=== PATIENT | female | born 1965 | race Caucasian/White ===

== ENCOUNTER 2017-02-05 07:26 | Emergency (ER) | payer MEDICAID ==
[~2017-02-05] VITALS: Ht 170.2 cm; Wt 63.5 kg
[2017-02-05 07:31] VITALS: BP 113/67
[2017-02-05 08:30] VITALS: BP 113/66
== END 2017-02-05 08:45 | disposition home or self-care (01) ==
LOC: MED 07:26
DX: S50.02XA Contusion of left elbow, initial encounter (principal); W22.8XXA Striking against or struck by other objects, initial encounter; Y93.89 Activity, other specified; Y92.89 Other specified places as the place of occurrence of the external cause; Y99.8 Other external cause status
CPT/HCPCS: 73080; 99284; Q0092

== ENCOUNTER 2017-04-09 17:14 | Emergency (ER) | payer MEDICAID ==
[~2017-04-09] VITALS: Ht 170.2 cm; Wt 67.7 kg
[2017-04-09 17:44] VITALS: BP 114/73
--- NOTE | 2017-04-09 18:21 | NUR ---
PATIENT TO BED 11
--- NOTE | 2017-04-09 18:23 | NUR ---
51/F C/O LEFT KNEE PAIN 01/23 WITH SWELLING, INJURED IT A WEEK AGO.AAOX4 WITH EVEN AND STEADY GAIT; LUNGS CLEAR BL; HR EVEN AND REGULAR; PATIENT STATES PAIN OF 8/10 AT THIS TIME; VSS; PATIENT POSITIONED FOR COMFORT; HOB ELEVATED; BEDRAILS UP X2; BED DOWN. ER MD MADE AWARE OF PT STATUS.
[2017-04-09] MEDS ORDERED: KETOROLAC 60 MG/2 ML VIAL IM ONE (18:45)
[2017-04-09 19:06] VITALS: BP 117/81
--- NOTE | 2017-04-09 19:07 | NUR ---
Patient discharged with v/s stable. Written and verbal after care instructions given and explained. Patient alert, oriented and verbalized understanding of instructions. Ambulatory with steady gait. All questions addressed prior to discharge. ID band removed. Patient advised to follow up with PMD. Rx of NORCO & MOTRIN given. Patient educated on indication of medication including possible reaction and side effects. Opportunity to ask questions provided and answered.
== END 2017-04-09 19:07 | disposition home or self-care (01) ==
LOC: MED 17:14
DX: M25.562 Pain in left knee (principal); F17.210 Nicotine dependence, cigarettes, uncomplicated; Z90.49 Acquired absence of other specified parts of digestive tract
CPT/HCPCS: 73562; 81025; 96372; 99284; J1885

== ENCOUNTER 2017-08-23 18:26 | Emergency (ER) | payer MEDICAID ==
[~2017-08-23] VITALS: Ht 170.2 cm; Wt 70.8 kg
[~2017-08-23 18:26] MED LIST: AMOX-999 PO; IBUP-1842 PO; PANT40EC PO
[2017-08-23 18:30] VITALS: BP 161/96
--- NOTE | 2017-08-23 18:34 | NUR ---
Patient ambulated to chair D. RN evaluating patient at bedside.
--- NOTE | 2017-08-23 18:39 | NUR ---
tooth pain to left lower side; pt seen here two days ago for same; went to dentist today and states they were unable to pull her tooth d/t not being able to numb her properly . DENIES N/V/D; SKIN IS PINK/WARM/DRY; AAOX4 WITH EVEN AND STEADY GAIT; LUNGS CLEAR BL; HR EVEN AND REGULAR; PT DENIES ANY FEVER, CP, SOB, OR COUGH AT THIS TIME; PATIENT STATES PAIN OF 10/10 AT THIS TIME; VSS; ER MD MADE AWARE OF PT STATUS.
--- NOTE | 2017-08-23 19:00 | NUR ---
RECEIVED REPORT FROM SWATI RALPH. TRANSFER OF CARE AT THIS TIME.
--- NOTE | 2017-08-23 20:13 | NUR ---
Dr. Peterson evaluating patient at bedside.
[2017-08-23 20:26] VITALS: BP 151/82
--- NOTE | 2017-08-23 20:26 | NUR ---
Patient discharged with v/s stable. Written and verbal after care instructions given and explained. Patient alert, oriented and verbalized understanding of instructions. Ambulatory with steady gait. All questions addressed prior to discharge. ID band removed. Patient advised to follow up with PMD. Rx of IBUPROFEN 600MG, AUGMENTIN 875MG AND NORCO 5MG-325MG given. Patient educated on indication of medication including possible reaction and side effects. Opportunity to ask questions provided and answered.
== END 2017-08-23 20:26 | disposition home or self-care (01) ==
LOC: MED 18:26
DX: K04.7 Periapical abscess without sinus (principal)
CPT/HCPCS: 99283

== ENCOUNTER 2017-11-23 04:26 | Emergency (ER) | payer MEDICAID ==
[~2017-11-23] VITALS: Ht 170.2 cm; Wt 72.6 kg
[2017-11-23 04:43] VITALS: BP 138/67
--- NOTE | 2017-11-23 04:45 | NUR ---
TO BED # 4 AMBULATORY,CAME IN FOR STAPLE REMOVAL ON HER LEFT SIDE HEAD.
--- NOTE | 2017-11-23 04:55 | NUR ---
ROBYN WAS REMOVED BY ERMD WITH ASEPTIC TECHNIQUE. WOUND CLEAN AND INTACT.
[2017-11-23 05:02] VITALS: BP 138/67
--- NOTE | 2017-11-23 05:02 | NUR ---
Patient discharged with v/s stable. Written and verbal after care instructions given and explained. Patient verbalized understanding. Ambulatory with steady gait. All questions addressed prior to discharge. Advised to follow up with PMD.
== END 2017-11-23 05:02 | disposition home or self-care (01) ==
LOC: MED 04:26
DX: S01.01XD Laceration without foreign body of scalp, subsequent encounter (principal); K21.9 Gastro-esophageal reflux disease without esophagitis; Z79.899 Other long term (current) drug therapy; Z90.49 Acquired absence of other specified parts of digestive tract; X58.XXXD Exposure to other specified factors, subsequent encounter
CPT/HCPCS: 99281

== ENCOUNTER 2017-11-30 19:55 | Emergency (ER) | payer MEDICAID ==
[~2017-11-30] VITALS: Ht 170.2 cm; Wt 68.0 kg
[2017-11-30 20:05] VITALS: BP 120/78
--- NOTE | 2017-11-30 20:06 | NUR ---
TO BED # 2 AMBULATORY , REPORT GIVEN TO ASHLEY RALPH.
--- NOTE | 2017-11-30 20:08 | NUR ---
PATIENT PRESENTS TO ED WITH RIGHT EAR PAIN . PT STATES PAIN FOR 3 DAYS WITH OUT DISCAHARGE . DENIES N/V/D; SKIN IS PINK/WARM/DRY; AAOX4 WITH EVEN AND STEADY GAIT; LUNGS CLEAR BL; HR EVEN AND REGULAR; PT DENIES ANY FEVER, CP, SOB, OR COUGH AT THIS TIME; PATIENT STATES PAIN OF 10/10 AT THIS TIME; VSS; PATIENT POSITIONED FOR COMFORT; HOB ELEVATED; BEDRAILS UP X2; BED DOWN. ER MD MADE AWARE OF PT STATUS.
[2017-11-30 20:35] VITALS: BP 108/69
--- NOTE | 2017-11-30 20:35 | NUR ---
Patient discharged with v/s stable. Written and verbal after care instructions given and explained. Patient alert, oriented and verbalized understanding of instructions. Ambulatory with steady gait. All questions addressed prior to discharge. ID band removed. Patient advised to follow up with PMD. Rx of Tylenol #3, Naproxen, and Ciprodex gtts given. Patient educated on indication of medication including possible reaction and side effects. Opportunity to ask questions provided and answered.
== END 2017-11-30 20:35 | disposition home or self-care (01) ==
LOC: MED 19:55
DX: H60.8X1 Other otitis externa, right ear (principal); K21.9 Gastro-esophageal reflux disease without esophagitis; F17.210 Nicotine dependence, cigarettes, uncomplicated; Z79.899 Other long term (current) drug therapy
CPT/HCPCS: 99283

== ENCOUNTER 2019-08-29 20:26 | Emergency (ER) | payer SELFPAY ==
[~2019-08-29] VITALS: Ht 170.2 cm; Wt 76.7 kg
[2019-08-29 20:29] VITALS: BP 123/71
--- NOTE | 2019-08-29 20:34 | NUR ---
PATIENT TAKEN TO BED 11, FLU SWAB OBTAINED
--- NOTE | 2019-08-29 20:38 | NUR ---
54 YO FEMALE CO SORE THROAT FOR 3D. PT STATES THAT THE PAIN IS GONE NOW BUT HER BOSS NEEDS HER TO BE CLEARED TO RETURN TO WORK. NO DIFFUCULTY SWALLOWING, NO DROOLING OBSERVED. PT HAS NO MED HX AND NO RX.
--- NOTE | 2019-08-29 21:21 | NUR ---
PATIENT ELOPED FROM FACILITY. DISCHARGE INSTRUCTIONS NOT GIVEN TO PATIENT. DR. MOSLEY NOTIFIED.
[2019-08-29 21:22] VITALS: BP 123/71
== END 2019-08-29 21:21 | disposition left against medical advice (07) ==
LOC: MED 20:26
DX: R06.02 Shortness of breath (principal); Z53.21 Procedure and treatment not carried out due to patient leaving prior to being seen by health care provider

== ENCOUNTER 2020-09-14 08:42 | Emergency (ER) | payer SELFPAY ==
[~2020-09-14] VITALS: Ht 170.2 cm; Wt 70.3 kg
[2020-09-14 08:45] VITALS: BP 183/72
--- NOTE | 2020-09-14 08:52 | NUR ---
PT AMBULATED TO BED 12.
--- NOTE | 2020-09-14 08:59 | NUR ---
55 Y/O FEMALE C/O RIGHT RIB PAIN S/P SLIGHT INJURY, PATIENT STATES SHE WAS TRYING TO PULL A CHAIR OFF OF A FORKLIFT AND ENDED UP PULLING CHAIR INTO ABDOMEN, INJURYING HER RIGHT RIB AREA. PATIENT STATES SHE HEARD A CRACK DURING ACCIDENT. PATIENT STATING IT NOW HURTS TO BREATHE, DENIES ANY LOC. DENIES ANY N/V. NO PROBLEMS WITH ELIMINATION. ALLERGIES:CODEINE
[2020-09-14] MEDS ORDERED: KETOROLAC 15 MG/ML VIAL ONE (09:06)
[2020-09-14] MEDS ORDERED: KETOROLAC 15 MG/ML VIAL IM SCH (09:30)
[2020-09-14] MEDS ORDERED: METH750T5 PO (10:02)
[2020-09-14] MEDS ORDERED: IBUP-2213 PO (10:02)
[2020-09-14 10:10] VITALS: BP 183/72
--- NOTE | 2020-09-14 10:10 | NUR ---
Patient discharged with v/s stable. Written and verbal after care instructions given and explained. Patient alert, oriented and verbalized understanding of instructions. Ambulatory with steady gait. All questions addressed prior to discharge. ID band removed. Patient advised to follow up with PMD. Rx of robaxin, ibuprofen given. Patient educated on indication of medication including possible reaction and side effects. Opportunity to ask questions provided and answered.
== END 2020-09-14 10:10 | disposition home or self-care (01) ==
LOC: MED 08:42
DX: R07.81 Pleurodynia (principal); K21.9 Gastro-esophageal reflux disease without esophagitis; Z88.5 Allergy status to narcotic agent; Z79.899 Other long term (current) drug therapy; X50.9XXA Other and unspecified overexertion or strenuous movements or postures, initial encounter; Y93.89 Activity, other specified; Y92.89 Other specified places as the place of occurrence of the external cause; Y99.8 Other external cause status
CPT/HCPCS: 71101; 96372; 99284; J1885